=== PATIENT | female | born 1985 | race American Indian/Alaskan Native ===

== ENCOUNTER 2021-10-29 17:13 | Emergency (ER) | payer OTHER ==
[2021-10-29 17:47] VITALS: BP 119/71
--- NOTE | 2021-10-29 18:16 | Emergency Department Report ---
ED Head Trauma HPI - General Chief complaint: Headache Stated complaint: HEADACHE (HIT HEAD FALL) Time Seen by Provider: 10/29/21 18:13 Source: patient Mode of arrival: Ambulatory Limitations: No Limitations - History of Present Illness Initial comments: 36-year-old female presents to the ER today for evaluation after head injury. Onset 2 days ago. Patient states that she lost her footing while she was walking to open the door of her home to go outside when she lost her footing and fell. She states that she struck her left head on one of the cabinets in the kitchen. She denies any LOC. She reports no apparent bruising or swelling to her head. She states that she has been having a headache since the injury. She reports nausea but no vomiting. She states that she has not taken anything for the pain. She states that she is currently . Her last menstrual cycle was August 31. She is scheduled for first care visit with primary FOOD SERVICE MANAGER this coming Wednesday. She has no abdominal pain or abnormal vaginal bleeding. She denies any UTI symptoms. Past medical history only significant for asthma she is not on any blood thinners. She does smoke both marijuana and tobacco. She states the main reason for coming today was to get checked out. She reports no additional symptoms at this time. MD Complaint: head injury, head pain -: days(s) (2) - Related Data Previous Rx's Medication Instructions Recorded Last Taken Type Acetaminophen [Acetaminophen 8 650 mg PO Q8HR PRN #20 10/29/21 Unknown Rx Hour] Ondansetron (Nf) [Zofran TAB] 8 mg PO Q8HR PRN #15 tablet 10/29/21 Unknown Rx Allergies/Adverse reactions: Allergies Allergy/AdvReac Type Severity Reaction Status Date / Time No Known Allergies Allergy Unverified 10/29/21 17:42 ED Review of Systems ROS: Stated complaint: HEADACHE (HIT HEAD FALL) Other details as noted in HPI Comment: All other systems reviewed and negative ENT: denies: ear pain, throat pain Respiratory: denies: cough, shortness of breath, wheezing Gastrointestinal: nausea. denies: abdominal pain, diarrhea Musculoskeletal: denies: back pain, joint swelling, arthralgia Skin: denies: rash, lesions Neurological: headache. denies: weakness, numbness, paresthesias, confusion, abnormal gait, vertigo Psychiatric: denies: anxiety, depression, auditory hallucinations, visual hallucinations, homicidal thoughts, suicidal thoughts Hematological/Lymphatic: denies: easy bleeding, easy bruising ED Past Medical Hx - Medications Home Medications: Home Medications Medication Instructions Recorded Confirmed Last Taken Type Acetaminophen [Acetaminophen 8 650 mg PO Q8HR PRN #20 10/29/21 Unknown Rx Hour] Ondansetron (Nf) [Zofran TAB] 8 mg PO Q8HR PRN #15 tablet 10/29/21 Unknown Rx ED Physical Exam - General Limitations: No Limitations General appearance: alert, in no apparent distress, obese - Head Head exam: Present: atraumatic, normocephalic, normal inspection, other (Mild tenderness to palpation to left parietal scalp but no apparent signs of trauma.) - Eye Eye exam: Present: normal appearance, PERRL, EOMI Pupils: Present: normal accommodation - ENT ENT exam: Present: normal exam, mucous membranes moist, TM's normal bilaterally - Neck Neck exam: Present: normal inspection, full ROM. Absent: meningismus - Respiratory Respiratory exam: Present: normal lung sounds bilaterally. Absent: respiratory distress, wheezes, rales, rhonchi - Cardiovascular Cardiovascular Exam: Present: regular rate, normal rhythm, normal heart sounds - GI/Abdominal GI/Abdominal exam: Present: soft. Absent: distended, tenderness, guarding, rebound - Neurological Exam Neurological exam: Present: alert, oriented X3, normal gait - Psychiatric Psychiatric exam: Present: normal affect, normal mood - Skin Skin exam: Present: intact ED Course Vital Signs 10/29/21 17:45 Temperature 98.7 F Pulse Rate 92 H Respiratory 18 Rate Blood Pressure 119/71 [Right] O2 Sat by Pulse 99 Oximetry - Medical Decision Making 36-year-old female presents to the ER today for evaluation after head injury. Onset 2 days ago. Patient states that she lost her footing while she was walking to open the door of her home to go outside when she lost her footing and fell. She states that she struck her left head on one of the cabinets in the kitchen. She denies any LOC. She reports no apparent bruising or swelling to her head. She states that she has been having a headache since the injury. She reports nausea but no vomiting. She states that she has not taken anything for the pain. She states that she is currently . Her last menstrual cycle was August 31. She is scheduled for first care visit with primary FOOD SERVICE MANAGER this coming Wednesday. She has no abdominal pain or abnormal vaginal bleeding. She denies any UTI symptoms. Past medical history only significant for asthma she is not on any blood thinners. She does smoke both marijuana and tobacco. She states the main reason for coming today was to get checked out. She reports no additional symptoms at this time. 1838: Patient is well-appearing, nontoxic and not in any significant distress. She is currently awake alert and oriented x3 with GCS of 15 and her gait is normal. She has no evidence of significant trauma to her scalp/head. She has no hemotympanum. She has a soft nontender abdomen. Her vital signs are stable. Informed patient that is not usual to have a headache for couple days after head injury. At this time I do not suspect concussion or intracranial bleed or any other intracranial abnormality. Also given the fact that she is , exposing her to unnecessary imaging puts the baby at risk for radiation exposure. Recommend that she takes Tylenol for her pain and she will also give her some medication for nausea. Recommend she keep her appointment with her FOOD SERVICE MANAGER for this coming Wednesday. She understands that if at any point anything worsens in any way to return to the ER. Critical care attestation.: If time is entered above; I have spent that time in minutes in the direct care o f this critically ill patient, excluding procedure time. ED Disposition Clinical Impression: Head injury, closed, without LOC, Posttraumatic headache Disposition: HOME / SELF CARE / HOMELESS Is pt being admited?: No Does the pt Need Aspirin: No Condition: Stable Instructions: Head Injury, Adult, [id number] Additional Instructions: Because you are the safest thing to take will be Tylenol. Take the Tylenol as prescribed to help with any pain and the Zofran to help with any nausea. Drink lots of fluids. Recommend that you keep your appointment FOOD SERVICE MANAGER for this coming Wednesday. You can also follow-up with your primary care doctor. Return to the ER if your symptoms worsens or changes in any way. Prescriptions: Acetaminophen [Acetaminophen 8 Hour] 650 mg PO Q8HR PRN #20 PRN Reason: pain Ondansetron (Nf) [Zofran TAB] 8 mg PO Q8HR PRN #15 tablet PRN Reason: Nausea Referrals: [facility] [Provider Group] - 3-5 Days Time of Disposition: 18:30
[2021-10-29] MEDS ORDERED: ACETAMINOPHEN 325 MG TAB PO ONE (18:31)
[2021-10-29] MEDS ORDERED: ONDANSETRON 4 MG ODT TAB PO ONE (19:00)
== END 2021-10-29 19:38 | disposition home or self-care (01) ==
LOC: ED 17:13
DX: S09.8XXA Other specified injuries of head, initial encounter (principal); G44.309 Post-traumatic headache, unspecified, not intractable; X58.XXXA Exposure to other specified factors, initial encounter; Y93.89 Activity, other specified; Y92.89 Other specified places as the place of occurrence of the external cause; Y99.8 Other external cause status
CPT/HCPCS: 99282; J3490; Q0162

== ENCOUNTER 2022-06-05 09:36 | Inpatient (IN) | payer OTHER ==
[2022-06-05] MEDS ORDERED: FAMOTIDINE 20 MG/2 ML INJ IV SCH (11:00)
[2022-06-05] MEDS ORDERED: LACTATED RINGERS 1,000 ML IV SCH (11:00)
[2022-06-05] MEDS ORDERED: ceFAZolin/Water 2 GM/20 ML 2 GM/20 ML SYRINGE IV NR (11:00)
[2022-06-05] MEDS ORDERED: OXYTOCIN DRIP 30 UNITS/500 ML BAG IV SCH ×2 (11:00→18:16)
[2022-06-05] MEDS ORDERED: METOCLOPRAMIDE 10 MG/2 ML INJ IV SCH (11:00)
[2022-06-05] MEDS ORDERED: BICITRA ORAL LIQD 30ML PO SCH (11:00)
[2022-06-05] MEDS ORDERED: LACTATED RINGERS 1,000 ML ONE ×2 (11:09→14:38)
--- NOTE | 2022-06-05 12:22 | Anesthesia Day of Surgery ---
Anesthesia Day of Surgery - Day of Surgery Patient Examined: Yes Patient H&P Reviewed: Yes Patient is NPO: Yes
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
[2022-06-05 12:35] LABS: Basophils % (Auto) 0.6 % (0.0-1.8); Eosinophils # (Auto) 0.1 K/mm3 (0.0-0.4); Eosinophils % (Auto) 1.2 % (0.0-4.3); Hematocrit 35.9 % (30.3-42.9); Hemoglobin 11.9 gm/dl (10.1-14.3); Lymphocytes % (Auto) 27.2 % (13.4-35.0); Mean Corpuscular HGB Conc 33 % (30-34); Mean Corpuscular Volume 87 fl (79-97); Monocytes # (Auto) 0.5 K/mm3 (0.0-0.8); Platelet Count 288 K/mm3 (140-440); Red Blood Count 4.13 M/mm3 (3.65-5.03); Red Cell Distribution Width 14.5 % (13.2-15.2)
--- NOTE | 2022-06-05 12:37 | History and Physical Report ---
History of Present Illness Date of examination: 06/05/22 Date of admission: 06/05/22 09:36 Chief complaint: scheduled section History of present illness: Patient is a 36-year-old -[place] female 3 para 2-0-0-2 GOLD 06/07/2022 at 39 weeks and 5 days who presents for repeat section secondary to previous x2. She reports irregular contractions and denies vaginal bleeding or leakage of fluid. She has had care at [facility] women's [employer] COUNTER PERSON since 10 weeks complicated by morbid obesity, advanced maternal age, genital herpes without lesion or prodrome,. She is GBS negative. 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[employer] PATTERN History: herpes (no lesion or prodrome ) Social history: no significant social history - Obstetrical History Expected Date of Delivery: 06/07/22 Actual Gestation: 39 Week(s) 5 Day(s) : 3 Para: 2 Hx # Term Pregnancies: 2 Number of Pregnancies: 0 Spontaneous Abortions: 0 Induced : 0 Number of Living Children: 2 Medications and Allergies Allergies Allergy/AdvReac Type Severity Reaction Status Date / Time No Known Allergies Allergy Verified 10/29/21 18:45 Home Medications Medication Instructions Recorded Confirmed Last Taken Type Acetaminophen [Acetaminophen 8 650 mg PO Q8HR PRN #20 10/29/21 Unknown Rx Hour] Ondansetron (Nf) [Zofran TAB] 8 mg PO Q8HR PRN #15 tablet 10/29/21 Unknown Rx Active Meds: Active Medications Citric Acid/Sodium Citrate (Bicitra Oral Liqd 30ml) 30 ml PO ONCE CORDELIA Famotidine (Famotidine 20 Mg/2 Ml Inj) 20 mg IV ONCE CORDELIA Lactated Ringer's (Lactated Ringers) 1,000 mls @ 2,250 mls/hr IV PREOP CORDELIA Stop: 06/06/22 11:27 Oxytocin/Sodium Chloride (Pitocin/Ns 30 Unit/500ml) 30 units in 500 mls @ 0 mls/hr IV TITR CORDELIA; Protocol Cefazolin Sodium (Ancef/Sterile Water 2 Gm/20 Ml) 2 gm in 20 mls @ 80 mls/hr IV PREOP NR; Protocol Stop: 06/06/22 10:59 Metoclopramide HCl (Metoclopramide 10 Mg/2 Ml Inj) 10 mg IV ONCE CORDELIA Review of Systems All systems: negative - Vital Signs Vital signs: Vital Signs Pulse BP 75 145/63 06/05/22 10:34 06/05/22 10:34 Temp Pulse Resp BP Pulse Ox 98.5 F 80 16 128/66 99 06/05/22 10:42 06/05/22 12:32 06/05/22 10:42 06/05/22 10:48 06/05/22 12:32 - Physical Exam Breasts: Positive: deferred Abdomen: Positive: soft (obese, gravid ) Uterus: Positive: enlarged (gravid ) Extremities: Positive: edema (trace ) - Obstetrical FHR: auscultation normal Uterine Contraction Pattern: Irregular Uterine Tone Measurement Phase: Resting Results Result Diagrams: 06/05/22 11:20 All other labs normal. Assessment and Plan A: IUP at 39w5d Previous x 2 Morbid Obesity AMA Genital Herpes GBS negative P: Proceed with repeat section and other indicated procedures
[2022-06-05] MEDS ORDERED: miSOPROStol 200 MCG TAB ONE (13:15)
[2022-06-05] MEDS ORDERED: METHYLERGONOVINE MALEATE 0.2 MG/ML VIAL IM ONE (13:16)
[2022-06-05] MEDS ORDERED: BUPIVACAINE/PF (0.5%) 5 MG/1 ML 30 ML VIAL INFILTRATI ONE (14:38)
[2022-06-05] MEDS ORDERED: ONDANSETRON 4 MG/2 ML INJ ONE (14:38)
[2022-06-05] MEDS ORDERED: PHENYLEPHRINE 10 MG/1 ML INJ SDV ONE (15:10)
[2022-06-05] MEDS ORDERED: SODIUM CHLORIDE 0.9% 100 ML ONE (15:43)
[2022-06-05] MEDS ORDERED: SODIUM CHLORIDE 0.9% 500 ML 500 ML ONE (15:44)
[2022-06-05] MEDS ORDERED: KETOROLAC 30 MG/1 ML INJ ONE (16:15)
--- NOTE | 2022-06-05 16:32 | Procedure Note ---
OB Delivery Note - Delivery Date of Delivery: 06/05/22 Surgeon: MILLER GREENWOOD Estimated blood loss: other (680 mL) - Section Preop diagnosis: repeat Postop diagnosis: same section procedure: section, repeat low transverse Disposition: PACU Complications: none Narrative: Please see operative report - Infant A at 1 minute: 8 at 5 minutes: 9 Infant Gender: Female (3220g (7lb 2oz) @ 1530pm)
--- NOTE | 2022-06-05 16:43 | Operative Report ---
Operative Report Operative Report: Date of procedure: June 05, 2022 Preoperative diagnosis: 1) IUP at 39w5d 2) Previous x 2 3) Morbid Obesity BMI 47 4) Advanced Maternal Age Postoperative diagnosis: Same 5) Uterine Atony Procedure: Repeat low transverse section Surgeon: Nathalie Zaidi M.D. Anesthesia: Regional Findings: 1) Viable female , Apgars 8 and 9, weight 3220 g, (7 lb 2 oz) in cephalic presentation. 2) Normal-appearing uterus ovaries and tubes Estimated blood loss: 680 mL IV fluids: 1700 mL Urine output: 300 mL, clear at the end of the procedure Drains: [place] to gravity Medications: Methergine 0.2 mg IM, misoprostol 800 mcg per rectum after the procedure Specimens: None Complications:None. Counts correct x 3 Disposition: Stable to PACU Indication for procedure: Pt is a 36-year-old -[place] female 3 para 2-0-0-2 at 39 weeks 5 days with a history of 2 prior sections who presents for repeat section. Operation in detail: After the risks, benefits, alternatives and complications were explained to the patient she gave informed consent for the procedure. She was subsequently taken to the operating room where regional anesthesia was noted to be adequate. She was placed in the dorsal supine position with leftward tilt and prepped and draped in a normal sterile fashion. heart tones were noted prior to incision. A timeout was performed. A Pfannenstiel skin incision was made with the knife and carried down to the layer of the fascia with the Bovie. The fascia was incised in the midline and the fascial incision was extended bilaterally with the Bovie. The fascial incision was then stretched. The rectus muscles were then in the mi dline and partially transected for adequate visualization. The peritoneum was then entered bluntly. The peritoneal incision was extended with good visualization of the bladder. The peritoneal incision was then stretched. An Noe retractor was placed. The bladder blade was then placed. The vesicouterine peritoneum was noted to be densely adherent to the lower uterine segment. A transverse incision was made in the lower uterine segment with a knife and extended bilaterally with the bandage scissors. Amniotomy was performed with egress of clear fluid. head delivered with ease, followed by shoulders and body. bulb suctioned at delivery. Cord clamped and cut. handed to staff in attendance. Cord blood was collected. The placenta was then delivered manually. The uterus was then exteriorized and cleared of all clots and debris. Uterine atony was noted despite administration of IV Pitocin. Methergine 0.2 mg IM was administered. Uterine tone was improved. The hysterotomy was then reapproximated with 0 Monocryl in a running locked fashion. A second layer of the same suture was used in imbricating fashion. The hysterotomy was inspected and hemostasis was noted. The gutters were irrigated and cleared of all clots and debris. The uterus was placed back into the peritoneal cavity. The hysterotomy was again inspected and noted to be hemostatic. Surgicel was placed over the hysterotomy. The Noe retractor was removed. The peritoneum was reapproximated with 0 Monocryl in a running fashion incorporating the rectus muscles. Surgicel was placed over the rectus muscles. The fascia was reapproximated with 0 Vicryl in a running fashion. The subcutaneous tissue was reapproximated with 3-0 Vicryl in a running fashion. The skin was reapproximated with 3-0 Monocryl in a subcuticular fashion. The incision was then covered with steri strips and a pressure dressing. The procedure was then ended. The patient tolerated the procedure well and was taken to the PACU in stable condition. All instrument, lap, and needle counts were correct. Misoprostol 800 mcg will be administered per rectum after the procedure.
--- NOTE | 2022-06-05 17:39 | Progress Note ---
Spinal Anesthesia Block - Spinal Anesthesia Block Start Time: 14:42 Stop Time: 14:55 Performed by:: REMBERTO TORRES Procedure: Patient IDed, H&P reviewed, all questions and concerns were answered, and consent was signed. Timeout was performed at bedside. Patient in sitting position. Sterile prep and drape was performed. [3] ml of 1% lidocaine skin wheal at L[3]- L [4]. Needle introducer advanced. 25 gauge spinal needle advanced. Clear, free flowing CSF. negative blood, negative paresthesia. Spinal dose given. All needles removed. Patient tolerated procedure.
--- NOTE | 2022-06-05 17:40 | Progress Note ---
Regional Anesthesia Block - Regional Anesthesia Block Start Time: 16:22 Stop Time: 16:24 Performed By:: REMBERTO TORRES Procedure: Patient consented for TAP block for post surgical pain management. Patient identified, monitors placed, and time out performed. TAP identified bilaterally via ultrasound. Skin prepped bilaterally with [chlorhexidine] and [22g stimuplex] needle advanced to the TAP. [Marcaine 0.22% 35ml] injected under ultrasound guidance on the [left] side. [Marcaine 0.22% 35ml] injected under ultrasound guidance on the [right] side. Negative aspiration every 5mL, No change in heart rate or rhythm. Patient tolerated the procedure well. No apparent complications seen.
[2022-06-05] MEDS ORDERED: HYDROmorphone 0.5 MG/0.5 ML INJ IV PRN (18:16)
[2022-06-05] MEDS ORDERED: LANOLIN/ZINC/DIMETHICONE (LANSINOH) 7 GM TP PRN (18:16)
[2022-06-05] MEDS ORDERED: ONDANSETRON 4 MG/2 ML INJ IV PRN (18:16)
[2022-06-05] MEDS ORDERED: D5W/LACTATED RINGERS 1,000 ML IV SCH (18:16)
[2022-06-05] MEDS ORDERED: WITCH HAZEL/ GLYCERIN PAD TP PRN (18:16)
[2022-06-05] MEDS ORDERED: SIMETHICONE 80 MG CHEW TAB PO PRN (18:16)
[2022-06-05] MEDS ORDERED: NALOXONE 0.4 MG/1 ML INJ IV PRN (18:16)
[2022-06-05] MEDS: KETOROLAC 30 MG/1 ML INJ IV SCH (18:51)
[2022-06-05] MEDS: ceFAZolin/NS 1 GM/50 ML 1 GM/50 ML BAG IV SCH (21:06)
[2022-06-05] MEDS: HYDROmorphone 0.5 MG/0.5 ML INJ IV PRN (22:46)
[2022-06-06] MEDS: KETOROLAC 30 MG/1 ML INJ IV SCH ×3 (00:30→16:45)
[2022-06-06] MEDS: HYDROmorphone 0.5 MG/0.5 ML INJ IV PRN (03:20)
[2022-06-06] MEDS ORDERED: TETANUS,DIPH,PERTUSS(ACELL) VACCINE 0.5 ML SYRINGE IM ONE (06:00)
[2022-06-06] MEDS: ceFAZolin/NS 1 GM/50 ML 1 GM/50 ML BAG IV SCH (06:37)
[2022-06-06 07:48] LABS: Hematocrit 35.2 % (30.3-42.9); Hemoglobin 11.5 gm/dl (10.1-14.3)
[2022-06-06] MEDS: oxyCODONE /ACETAMINOPHEN 5-325MG TAB PO PRN ×3 (09:30→23:28)
--- NOTE | 2022-06-06 14:25 | Progress Note ---
Assessment and Plan A: POD #1 s/p repeat at term Morbid Obesity P: Routine postop advances Subjective - Subjective Date of service: 06/06/22 Principal diagnosis: POD#1 s/p Repeat at term, Morbid Obesity Interval history: Patient without complaints today. Plus flatus. Decreasing lochia. Ambulating without difficulty. Voiding difficulty. Patient reports: appetite normal, voiding normally, pain well controlled, flatus, ambulating normally, no bowel movement : doing well Objective - Vital Signs Latest vital signs: Vital Signs Temp Pulse Resp BP BP Pulse Ox Pulse Ox 06/06/22 13:35 86 100/60 98 06/06/22 09:58 98.9 F 71 22 108/54 99 06/06/22 08:20 100 06/06/22 05:05 97.5 F L 64 18 124/75 100 06/06/22 01:17 97.8 F 70 18 116/63 99 06/05/22 22:01 97.9 F 74 18 118/73 99 06/05/22 20:45 100 06/05/22 18:51 20 06/05/22 17:50 97.7 F 74 20 123/77 100 100 Intake and Output 06/05/22 06/06/22 06/06/22 22:59 06:59 14:59 Intake Total 2049 600 Output Total 300 2200 Balance 1750 -1600 Intake: IV 2049 ANCEF/NS 1 GM/50 ML 1 gm 50 In 50 ml @ 100 mls/hr IV Q8H [facility] Rx#:[id number] Intake, Free Water 600 Output: Urine 300 2200 2-way Urethral 500 Indwelling Catheter 1400 Void 300 Other: Total, Output Amount 300 - Exam Breasts: Present: deferred Abdomen: Present: soft (obese ) Uterus: Present: fundal height at umbilicus Extremities: Present: edema (trace ) Incision: Present: dressed
--- NOTE | 2022-06-06 14:27 | Post Anesthesia Evaluation ---
- Post Anesthesia Evaluation Patient Participated: Yes Airway Patent: Yes Stable Respiratory Function: Yes Nausea/Vomiting: No Temp > 96.8F: Yes Pain Manageable: Yes Adequeate Hydration: Yes Anesthesia Complications: No Block Receding Appropriately: Yes Patient on Ventilator: No
[2022-06-06] MEDS: LACTULOSE 20 GM/30 ML ORAL LIQD PO SCH (14:51)
[2022-06-06] MEDS ORDERED: KETOROLAC 30 MG/1 ML INJ IV SCH (17:00)
[2022-06-06] MEDS ORDERED: MEASLES, MUMPS & RUBELLA 12,500 UNIT/0.5 ML VACCINE SUB-Q ONE (19:30)
[2022-06-07] MEDS: LACTULOSE 20 GM/30 ML ORAL LIQD PO SCH ×2 (03:00→15:15)
[2022-06-07] MEDS ORDERED: TETANUS,DIPH,PERTUSS(ACELL) VACCINE 0.5 ML SYRINGE IM ONE (06:30)
[2022-06-07] MEDS: IBUPROFEN 800 MG TAB PO PRN ×2 (06:51→12:34)
--- NOTE | 2022-06-07 10:07 | Progress Note ---
Assessment and Plan A: POD #2 s/p repeat at term Morbid Obesity P: Routine postop advances Continue to encourage ambulation Anticipate discharge later today or tomorrow Subjective - Subjective Date of service: 06/07/22 Principal diagnosis: POD#2 s/p Repeat at term, Morbid Obesity Interval history: Patient without complaints today. Plus flatus. No bowel movement yet. Patient reports: appetite normal, voiding normally, pain well controlled, flatus, ambulating normally, no bowel movement, no nauseated : doing well Objective - Vital Signs Latest vital signs: Vital Signs Temp Pulse Resp BP BP Pulse Ox Pulse Ox 06/07/22 08:25 97.9 F 76 18 115/78 98 06/07/22 08:20 98 06/07/22 01:00 98.0 F 77 20 139/80 98 06/06/22 19:40 99 06/06/22 15:58 97.7 F 73 18 118/68 99 06/06/22 13:35 86 100/60 98 Intake and Output 06/06/22 06/07/22 06/07/22 22:59 06:59 14:59 Intake Total 480 120 Balance 480 120 Intake: Oral 360 120 Intake, Free Water 120 Other: Total, Intake Amount 360 120 # Voids Void 1 1 - Exam Breasts: Present: deferred Abdomen: Present: soft (obese ), distention (moderate) Uterus: Present: fundal height at umbilicus Extremities: Absent: edema Incision: Present: dressed
[2022-06-07 17:35] VITALS: BP 136/78
--- NOTE | 2022-06-07 18:12 | Discharge Summary ---
Providers - Providers Date of Admission: 06/05/22 09:36 Date of discharge: 06/07/22 Attending physician: MILLER GREENWOOD 06/05/22 18:16 Consult to Grocery Worker [CONS] Routine Reason For Exam: Primary care physician: MILLER GREENWOOD Hospitalization Reason for admission: section Delivery: Procedure: section, repeat low transverse Procedure details: Please see operative note Incision: intact (with steri strips ) complications: none Discharge diagnosis: IUP at term delivered [place] baby: female Hospital course: Pt was admitted for repeat section which she tolerated well. Her postoperative course was uncomplicated and she met discharge criteria on POD#2. She will follow up in 2 wks for an incision check. Condition at discharge: Stable Disposition: 01 HOME / SELF CARE / HOMELESS - Discharge Diagnoses (1) Morbid obesity with BMI of 45.0-49.9, adult Status: Acute (2) Previous delivery affecting , delivered Status: Acute (3) Term of female Status: Acute Plan - Discharge Medications Prescriptions: Ibuprofen [Motrin] 800 mg PO Q8HR PRN #30 tablet PRN Reason: Pain, Moderate (4-6) oxyCODONE /ACETAMINOPHEN [Percocet 5/325] 1 tab PO Q6HR PRN #30 tablet PRN Reason: Pain - Provider Discharge Summary Activity: routine, no sex for 6 weeks, no heavy lifting 4 weeks, no strenuous exercise Diet: routine Instructions: routine Additional instructions: [] Smoking cessation referral if applicable(refer to patient education folder for contact #) [] Refer to [facility]'s [facility] Booklet Call your doctor immediately for: * Fever > 100.5 * Heavy vaginal bleeding ( >1 pad per hour) * Severe persistent headache * Shortness of breath * Reddened, hot, painful area to leg or breast * Drainage or odor from incision. * Keep incision clean and dry at all times and follow doctor's instructions regarding bathing/showering - Follow up plan Follow up: MILLER GREENWOOD MD [Primary Care Provider] - 14 Days (Please call to schedule an incision check)
== END 2022-06-07 19:45 | disposition home or self-care (01) | DRG 765 ==
LOC: APU 09:36 → OB 18:09
PROVIDERS: ADMIT Obstetrics & Gynecology; ATTEND Obstetrics & Gynecology
PROC: 10D00Z1 Extraction of Products of Conception, Low, Open Approach (ICD-10-PCS; principal; 2022-06-05)
PROC: 3E0T3BZ Introduction of Anesthetic Agent into Peripheral Nerves and Plexi, Percutaneous Approach (ICD-10-PCS; 2022-06-05)
PROC: 3E0234Z Introduction of Serum, Toxoid and Vaccine into Muscle, Percutaneous Approach (ICD-10-PCS; 2022-06-06)
DX: O34.211 Maternal care for low transverse scar from previous cesarean delivery (principal); O98.32 Other infections with a predominantly sexual mode of transmission complicating childbirth; Z37.0 Single live birth; Z3A.39 39 weeks gestation of pregnancy; Z23 Encounter for immunization; O99.52 Diseases of the respiratory system complicating childbirth; J45.909 Unspecified asthma, uncomplicated; A60.00 Herpesviral infection of urogenital system, unspecified; O75.89 Other specified complications of labor and delivery
CPT/HCPCS: 36415; 85014; 85018; 85025; 86850; 86900; 86901; 90471; 90715; G0378; J3490; J7060; J7121; J0690; J1170; J1885; J2370; J2405; J2765; J7040; J7120; U0003